=== PATIENT | male | born 1960 | race Caucasian/White ===

== ENCOUNTER → 2016-08-09 | Outpatient (CLI) | payer MEDICARE, OTHER ==
[~2016-08-09] MED LIST: ASPIR 8181 MG PO; CIALIS5 MG PO; CRESTOR40 MG PO; FENOFIBRATE134 MG PO; FISH OIL 1,2001 EAC2 PO; METFORMIN HCL500 M2 PO; NEXIUM40 MG PO; TOPROL XL25 MG PO; WELLBUTRIN 75 M75 MG PO; ZYLOPRIM 100 M100 MG PO
[2016-08-09 13:22] LABS: BUN/CREATININE RATIO 24 (0-10)
== END ==
LOC: LAB 11:59
PROVIDERS: Internal Medicine Nephrology
DX: E78.5 Hyperlipidemia, unspecified (principal); M10.9 Gout, unspecified; E11.9 Type 2 diabetes mellitus without complications
CPT/HCPCS: 36415; 80053; 80061; 82043; 82570; 84443; 84550

== ENCOUNTER → 2020-08-01 | Outpatient (CLI) | payer MEDICARE, OTHER | LOC: CT 07-17 08:00 | DX: R10.84 Generalized abdominal pain (principal); K59.09 Other constipation; R91.1 Solitary pulmonary nodule | CPT/HCPCS: 36415; 82565; Q9967 ==

== ENCOUNTER → 2021-02-16 | Outpatient (CLI) | payer MEDICARE, OTHER | LOC: KOH-I 14:19 | DX: R91.1 Solitary pulmonary nodule (principal) | CPT/HCPCS: 71250 ==

== ENCOUNTER 2021-02-25 18:48 | Emergency (ER) | payer OTHER ==
[2021-02-25] MEDS ORDERED: IBUPROFEN800 MG PO (22:00)
[2021-02-25] MEDS ORDERED: CYCLOBENZAPRINE10 MG PO (22:00)
== END 2021-02-25 22:20 | disposition home or self-care (01) ==
LOC: ER1 18:48
DX: K21.9 Gastro-esophageal reflux disease without esophagitis (principal); I10 Essential (primary) hypertension; E11.9 Type 2 diabetes mellitus without complications; F17.210 Nicotine dependence, cigarettes, uncomplicated
CPT/HCPCS: 70450; 71045; 72125; 72128; 72131; 73030; 99284

== ENCOUNTER → 2021-04-08 | Outpatient (CLI) | payer MEDICARE, OTHER ==
[~2021-04-08] MED LIST changes: +CYCLOBENZAPRINE10 MG PO; +IBUPROFEN800 MG PO
== END ==
LOC: KOH-I 08:00
DX: M47.812 Spondylosis without myelopathy or radiculopathy, cervical region (principal); M47.816 Spondylosis without myelopathy or radiculopathy, lumbar region; M50.31 Other cervical disc degeneration, high cervical region; M48.02 Spinal stenosis, cervical region; M43.17 Spondylolisthesis, lumbosacral region; M48.07 Spinal stenosis, lumbosacral region
CPT/HCPCS: 72141; 72148

== ENCOUNTER → 2021-06-30 | Outpatient (CLI) | payer MEDICARE, OTHER | LOC: KOH-I 10:22 | DX: R91.1 Solitary pulmonary nodule (principal) | CPT/HCPCS: 71250 ==